=== PATIENT | female | born 1995 | race Caucasian/White ===

== ENCOUNTER 2019-04-14 23:53 | Emergency (ER) | payer OTHER ==
[2019-04-15] MEDS: KETOROLAC 30 MG INJ IM (04:14)
== END 2019-04-15 05:19 | disposition home or self-care (01) ==
LOC: FTE 23:53
DX: D25.9 Leiomyoma of uterus, unspecified (principal); F17.210 Nicotine dependence, cigarettes, uncomplicated; N39.0 Urinary tract infection, site not specified; N83.201 Unspecified ovarian cyst, right side
CPT/HCPCS: 36415; 76830; 76856; 80053; 81001; 81025; 83690; 85025; 96372; 99285-25